=== PATIENT | female | born 1980 | race African-American/Black ===

== ENCOUNTER 2020-02-18 04:21 | Inpatient (IN) | payer OTHER ==
[2020-02-15 11:26] VITALS: BMI 28.1
[2020-02-18] MEDS ORDERED: BUPIVACAINE LIPOSOME/PF (EXPAREL) 266 MG/20 ML VIAL ONE (10:52)
[2020-02-18] MEDS ORDERED: MIDAZOLAM HCL 2 MG/2 ML SINGLE DOSE VIAL ONE ×2 (10:53)
[2020-02-18] MEDS ORDERED: ROCURONIUM BROMIDE 50 MG/5 ML SYRINGE ONE ×2 (11:37→12:36)
[2020-02-18] MEDS ORDERED: ceFAZolin SODIUM 1 GM VIAL IVPB ONE (11:45)
[2020-02-18] MEDS ORDERED: TRIAMCINOLONE ACET 40MG/1ML VIAL ONE (11:57)
[2020-02-18] MEDS ORDERED: NEOSTIGMINE METHYLSULFATE 0.5 MG/ML - 10 ML MDV ONE (13:35)
[2020-02-18] MEDS ORDERED: SIMETHICONE 80 MG TAB.CHEW (FP) PO PRN (13:55)
[2020-02-18] MEDS ORDERED: DOCUSATE SODIUM 100 MG CAPSULE (FP) PO PRN (13:55)
[2020-02-18] MEDS ORDERED: ACETAMINOPHEN 325 MG TABLET (FP) PO PRN (13:55)
[2020-02-18] MEDS ORDERED: BISACODYL 5 MG TABLET.DR (FP) PO PRN (13:55)
[2020-02-18] MEDS ORDERED: IBUPROFEN 800 MG/8 ML IJ IVPB PRN (13:55)
[2020-02-18] MEDS ORDERED: ceFAZolin SODIUM 1 GM VIAL ONE (14:08)
[2020-02-18] MEDS ORDERED: LIDOCAINE HCL 2% JELLY (5 ML/TUBE) ONE (14:08)
[2020-02-18] MEDS ORDERED: LIDOCAINE HCL/PF 2% SDV 5ML VIAL ONE (14:08)
[2020-02-18] MEDS ORDERED: DEXAMETHASONE SOD PHOSPHATE 4 MG/1 ML VIAL ONE (14:08)
[2020-02-18] MEDS ORDERED: ACETAMINOPHEN INJECTION 100 ML IVPB ONE (15:24)
[2020-02-18] MEDS ORDERED: ACETAMINOPHEN 1000 MG/100 ML VIAL (NON FORMULARY) IVPB PRN (16:00)
[2020-02-18] MEDS: KETOROLAC TROMETHAMINE 30 MG/1 ML VIAL IVPUSH SCH (17:51)
[2020-02-18 18:50] LABS: HEMATOCRIT 35.5 % (32.4-45.2); HEMOGLOBIN 10.8 GM/dL (10.7-15.3); MCH 23.5 pg (25.7-33.7); MCHC 30.5 g/dl (32.0-36.0); MEAN CELL VOLUME 77.1 fl (80-96); MEAN PLT VOLUME 6.9 fl (7.5-11.1); PLATELET COUNT 425 K/MM3 (134-434); RBC 4.61 M/mm3 (3.60-5.2); RDW 31.2 % (11.6-15.6); WHITE BLOOD COUNT 19.3 K/mm3 (4.0-10.0)
[2020-02-18 19:10] LABS: POTASSIUM 3.9 mmol/L (3.5-5.1)
[2020-02-18 19:12] LABS: CALCIUM 8.3 mg/dL (8.5-10.1)
[2020-02-18 19:13] LABS: BLOOD UREA NITROGEN 12.3 mg/dL (7-18)
[2020-02-18 19:16] LABS: CREATININE 0.8 mg/dL (0.55-1.3)
[2020-02-18] MEDS: oxyCODONE HCL 5 MG TABLET PO PRN ×2 (20:00→23:41)
[2020-02-18] MEDS: CEFAZOLIN 1 GM/D5W 1 GM/50 ML BAG IVPB SCH (20:01)
[2020-02-18] MEDS: ACETAMINOPHEN 1000 MG/100 ML VIAL (NON FORMULARY) IVPB SCH (21:25)
[2020-02-18] MEDS: ONDANSETRON 4 MG/2 ML VIAL IVPUSH PRN (21:29)
[2020-02-19] MEDS: KETOROLAC TROMETHAMINE 30 MG/1 ML VIAL IVPUSH SCH ×2 (02:14→10:38)
[2020-02-19] MEDS: CEFAZOLIN 1 GM/D5W 1 GM/50 ML BAG IVPB SCH ×2 (03:05→11:05)
[2020-02-19] MEDS: ACETAMINOPHEN 1000 MG/100 ML VIAL (NON FORMULARY) IVPB SCH ×2 (03:40→11:05)
[2020-02-19] MEDS: oxyCODONE HCL 5 MG TABLET PO PRN ×2 (06:46→12:15)
[2020-02-19 08:08] LABS: HEMATOCRIT 30.9 % (32.4-45.2); HEMOGLOBIN 9.7 GM/dL (10.7-15.3); MCH 23.8 pg (25.7-33.7); MCHC 31.5 g/dl (32.0-36.0); MEAN CELL VOLUME 75.4 fl (80-96); MEAN PLT VOLUME 8.3 fl (7.5-11.1); PLATELET COUNT 368 K/MM3 (134-434); RBC 4.09 M/mm3 (3.60-5.2); RDW 30.9 % (11.6-15.6); WHITE BLOOD COUNT 11.1 K/mm3 (4.0-10.0)
[2020-02-19 08:24] LABS: POTASSIUM 4.2 mmol/L (3.5-5.1)
[2020-02-19 08:28] LABS: CALCIUM 7.8 mg/dL (8.5-10.1)
[2020-02-19 08:29] LABS: BLOOD UREA NITROGEN 12.6 mg/dL (7-18)
[2020-02-19 08:32] LABS: CREATININE 0.8 mg/dL (0.55-1.3)
[2020-02-19] MEDS: ONDANSETRON 4 MG/2 ML VIAL IVPUSH PRN ×2 (08:40→16:36)
[2020-02-19] MEDS: POLYETHYLENE GLYCOL 3350 119 GM BTL PO SCH (11:04)
[2020-02-19] MEDS ORDERED: IBUPROFEN 400 MG TABLET (FP) PO PRN (11:09)
[2020-02-19] MEDS: ACETAMINOPHEN 500 MG TABLET (FP) PO SCH ×3 (11:55→22:49)
[2020-02-19] MEDS: ENOXAPARIN NA (PORCINE) 30 MG/0.3 ML DISP.SYRIN SQ SCH (12:15)
[2020-02-19] MEDS ORDERED: ZOLPIDEM TARTRATE 5 MG TABLET PO ONE (23:35)
[2020-02-20 08:15] LABS: BASO % 0.6 % (0-2.0); EOS % 0.4 % (0-4.5); HEMOGLOBIN 8.5 GM/dL (10.7-15.3); LYMPH % 15.5 % (8-40); MCH 23.9 pg (25.7-33.7); MCHC 31.4 g/dl (32.0-36.0); MEAN CELL VOLUME 76.1 fl (80-96); MEAN PLT VOLUME 8.4 fl (7.5-11.1); MONO % 7.4 % (3.8-10.2); NEUT % 76.1 % (42.8-82.8); PLATELET COUNT 262 K/MM3 (134-434); RBC 3.55 M/mm3 (3.60-5.2); RDW 31.2 % (11.6-15.6); WHITE BLOOD COUNT 8.8 K/mm3 (4.0-10.0)
[2020-02-20] MEDS: ACETAMINOPHEN 500 MG TABLET (FP) PO SCH ×3 (10:11→13:29)
[2020-02-20] MEDS: oxyCODONE HCL 5 MG TABLET PO PRN (10:12)
[2020-02-20] MEDS: POLYETHYLENE GLYCOL 3350 119 GM BTL PO SCH (10:13)
[2020-02-20] MEDS: ENOXAPARIN NA (PORCINE) 30 MG/0.3 ML DISP.SYRIN SQ SCH (10:13)
[2020-02-20 14:14] VITALS: BP 125/68; PULSE 81; TEMP 98.6
== END 2020-02-20 16:21 | disposition home or self-care (01) | DRG 743 ==
LOC: JASUSAT 04:21 → EDSTATUS 10:00 → J2C 14:16 → J6S 17:06
PROVIDERS: ADMIT Obstetrics & Gynecology; ATTEND Obstetrics & Gynecology
PROC: 0UB20ZZ Excision of Bilateral Ovaries, Open Approach (ICD-10-PCS; 2020-02-18)
PROC: 0UB90ZZ Excision of Uterus, Open Approach (ICD-10-PCS; principal; 2020-02-18 12:00)
DX: D25.9 Leiomyoma of uterus, unspecified (principal); N80.1 Endometriosis of ovary; K59.00 Constipation, unspecified; N83.202 Unspecified ovarian cyst, left side; N83.201 Unspecified ovarian cyst, right side
CPT/HCPCS: 36415; 36430; 80048; 84703; 85025; 85027; 86850; 86900; 86901; 86922; 88305-TC; 93005; 93010; 94760; J0131; P9058